=== PATIENT | male | born 1950 | race Caucasian/White ===

== ENCOUNTER 2016-07-17 17:32 | Emergency (ER) | payer MEDICARE ==
[~2016-07-17] VITALS: Ht 180.3 cm; Wt 117.9 kg
[~2016-07-17 17:32] MED LIST: ADVAIR DISKUS 21 DSK IH; ALBUTEROL2 PUFFS/17 IN; ATORVASTATIN 4040 MG PO; AUGMENTIN1 TA2 PO; DUONEB 3 MG/3 ML3 ML IH; FLOMAX 0.4MG C0.4 MG PO; FLUOXETINE40 MG PO; GOOD NEIGHBOR325 MG PO; LISINOPRIL10 MG PO; LORTAB 5/500 501 TAB PO; MEDROL DOSEPAK4 MG PO; MUCINEX ER600 MG PO; TUDORZA PR400 MCG/Ac IH; VITAL-D1 TAB PO; ZANTAC 150150 MG PO
[2016-07-17] MEDS ORDERED: PLAVIX 75MG TAB75 MG PO (18:29)
[2016-07-17] MEDS ORDERED: LASIX 40MG. TAB40 MG PO (18:30)
[2016-07-17] MEDS ORDERED: ALDACTONE 25MG25 MG NG (18:30)
[2016-07-17] MEDS ORDERED: ENTRESTO 24 MG1 EACH PO (18:31)
[2016-07-17] MEDS ORDERED: MAG-OX 400MG T400 MG PO (18:32)
[2016-07-17] MEDS ORDERED: CARVEDILOL 25MG25 MG PO (18:32)
[2016-07-17] MEDS ORDERED: VENTOLIN H0.09 MG/AC IH (18:33)
[2016-07-17] MEDS ORDERED: LORTAB 10/3251 TAB PO (19:05)
--- NOTE | 2016-07-17 19:06 | Emergency Room Report ---
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 N Clinical Suspician of Infection? N Mental Status: 1 - Regular (Normal Baseline) Sepsis Risk:Low Sepsis Risk Have you (or family members/close friends) recently traveled outside the [place]? N If Yes, where/when: Have you had exposure to infectious disease within the past month? N TB? Other? Specify: Source patient, RN notes reviewed, family, RN/MD Exam Limitations no limitations Comment This is a 65-year-old male patient arriving to the emergency room with RIGHT wrist pain, after a recent fall sustained just prior to arrival. Patient denies any other injuries associated with this fall. Patient denies any neurological deficits in his RIGHT hand. ALLERGIES Coded Allergies: Tetracyclines (I-RASH 07/17/16) Home Medications Reported Medications Aspirin (Aspirin EC) 325 MG PO DAILY Atorvastatin Calcium (Atorvastatin 40MG) 80 MG PO DAILY Fluoxetine Hcl (Fluoxetine) 40 MG PO DAILY Lisinopril 10 MG PO DAILY FLUTICASONE/SALMETEROL (Advair 250-50 Diskus) 1 DSK IH BID Ranitidine Hcl (Zantac) 150 MG PO Q AM & PRN B CMPLX 4/VIT D3/C/FA/ZINC OX (Vital-D Rx Tablet) 1 TAB PO Q AM Albuterol/Ipratropiu (Duoneb) 3 ML IH QID PRN #120 NEB Guaifenesin (Mucinex) 1,200 MG PO BID PRN Albuterol (Albuterol Inhaler 17GM) 1 PUFF IN PRN #1 INH CLOPIDOGREL BISULFATE (PLAVIX) 75 MG PO DAILY Furosemide (Lasix 40MG) 40 MG PO DAILY Spironolactone (Aldactone) 25 MG NG DAILY Sacubitril/Valsartan (Entresto 24 MG-26 MG Tablet) 1 EACH PO BID MAGNESIUM OXIDE (Magnesium Oxide) 400 MG PO DAILY Carvedilol (Carvedilol 25MG) 25 MG PO BID ALBUTEROL (Ventolin Hfa) 1 PUFF IH Q6H6 History Medical History General CAD? Yes Angina: Yes [place]: Yes Hypertension? Yes Hyperlipidemia? Yes CHF? No DVT? No PE? No COPD? Yes Asthma? No Anemia? No GERD? No Gastric ulcers? No GI Bleed? No Hernia? Yes Thyroid Problems? No Hypothyroidism? No CVA? No Seizures? No Diabetes? No Renal Insuffiency? No End Stage Renal Disease? No UTI? No Stones? No GB Disease: No Nephritic Syndrome? No Asplenia? No Hepatitis? No Sickle Cell Disease? No Arthritis? No Cataracts? No Glaucoma? No MRSA? No TB? No Anxiety? No Depression? No Cancer? No Immunization Hx DT/Tetanus 1-4 Years Ago Surgical Hx Previous Surgery?Y Coronary Artery Bypass LEFT LUNG Tonsils Hemorrhoid VASECTOMY Colon Procedures DEFIBRILATOR/PACEMAKER LT SHOULDER RT ANKLE FUSION Family History Family Hx Diabetes No CAD No Hypertension Yes Hyperlipidemia No Cancer No TB No Social History Smoking Hx Smoker: Current Every Day Smoker Tobacco: Yes Type Cigarettes Packs/day 1 1/2 - 2 Packs Alcohol Alcohol: Yes Review of Systems All Other Systems Reviewed and Negative Musculoskeletal joint pain (the RIGHT wrist) Physical Exam Vital Signs Vital Signs Date Time Temp Pulse Resp B/P Pulse O2 O2 Flow FiO2 Ox Delivery Rate 07/17 190 98.6 69 20 143/78 96 07/178 98.6 69 20 143/78 96 07/178 98.6 69 20 143/78 96 General Appearance normal appearance, WD/WN, moderate distress Respiratory Status Yes: trachea midline, chest symmetrical, non tender chest. No: respiratory distress. Lung Sounds bilateral: normal breath sounds, lungs clear. 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 Yes Alex was queried for this patient? No Reason not queried - hospital network issues Risks/benefits of using a controlled substance for treatment were discussed w/pt by me Comment On reevaluation patient appears medically stable, advised of radiology findings consistent with a fracture as well as need for him to follow-up with one of the local orthopedic surgeons, for discharge instructions within the next 2 days. Also advised patient to keep his RIGHT hand elevated and apply ice packs locally. Results/Orders Orders Procedure Date/time Status WRIST-3 VIEWS-RT 07/17 1829 Active XRAY/CT/US XRAY/CT/US XRAY wrist (right) XR interpretation by reviewed by me Xray Results RIGHT distal radius fracture Procedures Orthopedic/Inj/Splint Ortho Proc/Injections/Splints Risks/benefits discussed with pt/guardian? Yes Location wrist (RIGHT) Hand-Made Type orthoglass Splint wrist (right) Pre-Proc Neuro Vasc Exam normal Post-Proc Neuro Vasc Exam normal Complications none Departure Departure Time of Disposition 1902 Disposition DC Home or Self Care(routine) Clinical Impression Primary Impression: Fracture of right distal radius Qualifiers: Encounter type: initial encounter Fracture type: closed Fracture morphology: Colles' Qualified Code: S52.531A - Colles' fracture of right radius, initial encounter for closed fracture Condition STABLE Referrals GENA MILNER, FATOU POE: [facility]Call Office Patient Instructions DI for Wrist Fracture Additional Instructions Please keep RIGHT wrist elevated, in a sling, apply ice locally, take the pain medications as directed, follow-up with Dr. Roberson's office at your earliest convenience. Discharge Counseling Counseled pt/family regarding diagnosis, test results, medications/RX, home care, follow up needs Comment Please keep RIGHT wrist elevated, in a sling, apply ice locally, take the pain medications as directed, follow-up with Dr. Roberson's office at your earliest convenience. Prescriptions Current Visit Scripts HYDROCODONE/ACETAMINOPHEN (Lortab 10-325 MG Tablet) 1 TAB PO QIDP PRN apin #12 TAB ED Critical Care Critical Care No at [id number]
[2016-07-17 19:08] VITALS: BP 143/78
--- NOTE | 2016-07-18 07:47 | RADIOLOGY REPORT PS360 ---
WRIST-3 VIEWS-RT HISTORY: Posttraumatic pain FALL ORDERING PHYSICIAN: Obinna Reyes MD PATIENT AGE: 65 years COMPARISON: None FINDINGS: Comminuted fracture involves the distal aspect of the radius with impaction and dorsal angulation and displacement of the distal fracture fragment. Fracture fragment is displaced dorsally x 7 mm. No other fractures are apparent. IMPRESSION: Comminuted distal radial fracture with dorsal displacement and angulation
== END 2016-07-17 19:09 | disposition home or self-care (01) ==
LOC: ER 17:32
DX: S52.501A Unspecified fracture of the lower end of right radius, initial encounter for closed fracture (principal); W19.XXXA Unspecified fall, initial encounter; I25.10 Atherosclerotic heart disease of native coronary artery without angina pectoris; I25.2 Old myocardial infarction; I10 Essential (primary) hypertension; J44.9 Chronic obstructive pulmonary disease, unspecified; E78.5 Hyperlipidemia, unspecified; Z95.0 Presence of cardiac pacemaker

== ENCOUNTER → 2016-10-12 | Outpatient (CLI) | payer MEDICARE ==
[~2016-10-12] MED LIST changes: +ALDACTONE 25MG25 MG NG; +CARVEDILOL 25MG25 MG PO; +ENTRESTO 24 MG1 EACH PO; +LASIX 40MG. TAB40 MG PO; +LORTAB 10/3251 TAB PO; +MAG-OX 400MG T400 MG PO; +PLAVIX 75MG TAB75 MG PO; +VENTOLIN H0.09 MG/AC IH
--- NOTE | 2016-10-12 14:35 | RADIOLOGY REPORT PS360 ---
WRIST-3 VIEWS-RT HISTORY: Follow-up fracture FU FX RT RADIUS ORDERING PHYSICIAN: FATOU AVERY MD PATIENT AGE: 66 years COMPARISON: 08/31/2016 FINDINGS: Comminuted impacted healing fracture noted of the distal radius as before with mild dorsal displacement of the distal fracture fragment and mild dorsal angulation of the distal fracture fragment. There is mild radial displacement also of the distal fracture fragment as before. There is some underlying calcified formation. Fracture line is still visible on the lateral view. IMPRESSION: Healing nondisplaced distal radial fracture as described above.
== END ==
LOC: RAD 12:50
DX: S52.531D Colles' fracture of right radius, subsequent encounter for closed fracture with routine healing (principal)